=== PATIENT | male | born 1955 | race Caucasian/White ===

== ENCOUNTER 2016-08-04 17:35 | Emergency (ER) | payer OTHER ==
[~2016-08-04] VITALS: Ht 182.9 cm; Wt 65.4 kg
[~2016-08-04 17:35] MED LIST: ATIVAN1 MG; ATIVAN2 MG PO; ENDOCET 5-3251 EACH; HYDROCODON-ACE1 EAC7; LIDODERM 5% P1 PATCH TD; MOBIC15 MG PO; MOTRIN400 MG PO; PAXIL10 MG PO; PERCOCET 5/31 TABLET PO; TRAMADOL HCL50 MG PO; VICODIN,LORT1 TABLET PO; XANAX0.25 MG; XANAX2 MG PO; ZOCOR40 MG PO; ZOCOR5 MG
[2016-08-04] MEDS ORDERED: ZOCOR20 MG PO (18:37)
[2016-08-04 19:12] VITALS: BP 134/97
== END 2016-08-04 19:13 | disposition home or self-care (01) ==
LOC: EME 17:35
DX: Z04.6 Encounter for general psychiatric examination, requested by authority (principal); F41.9 Anxiety disorder, unspecified; Z76.0 Encounter for issue of repeat prescription; E78.5 Hyperlipidemia, unspecified; Z88.8 Allergy status to other drugs, medicaments and biological substances; F17.200 Nicotine dependence, unspecified, uncomplicated
CPT/HCPCS: 99281; 99284

== ENCOUNTER 2016-08-14 12:34 | Emergency (ER) | payer OTHER ==
[~2016-08-14] VITALS: Ht 182.9 cm; Wt 61.5 kg
[~2016-08-14 12:34] MED LIST changes: +ZOCOR20 MG PO
[2016-08-14] MEDS ORDERED: LIBRIUM25 MG PO (16:29)
[2016-08-14 16:40] VITALS: BP 121/78
== END 2016-08-14 16:50 | disposition home or self-care (01) ==
LOC: EME 12:34
DX: F13.230 Sedative, hypnotic or anxiolytic dependence with withdrawal, uncomplicated (principal); F41.9 Anxiety disorder, unspecified; F17.200 Nicotine dependence, unspecified, uncomplicated; Z88.8 Allergy status to other drugs, medicaments and biological substances; E78.5 Hyperlipidemia, unspecified; Z98.1 Arthrodesis status
CPT/HCPCS: 99281; 99284